=== PATIENT | female | born 1945 | race Caucasian/White ===

== ENCOUNTER 2025-06-10 11:03 | Observation (INO) | payer MEDICARE, OTHER, SELFPAY ==
[2025-06-10] VITALS (13 sets, daily range): BP systolic 148–198; BP diastolic 75–93; PULSE 77–97; RESP 14–19; TEMP 36.5–37.2; O2SAT 94–98; BMI 25.0; BMI 22.6
--- NOTE | 2025-06-10 11:28 | ED.RN ---
reports patient wouldn't respond to his questions this morning, was grunting in response. alert and oriented and appropriately responding at this time.
--- NOTE | 2025-06-10 11:33 | CT_ITS ---
EXAM: STROKE BRAIN/HEAD WITHOUT CONT CLINICAL HISTORY: 79 y/o F with NEURO DEFICIT, ACUTE, STROKE SUSPECTED. Weakness, episode of unresponsiveness. COMPARISON: None. TECHNIQUE: Routine CT imaging of the head without IV contrast. Additional multiplanar reformats were obtained. Dose reduction techniques were used including intermediate exposure control (AEC),iterative reconstruction technique, and/or mA and/or KV dose adjustments based on patient's size. FINDINGS: The ventricles, sulci and cisterns are mildly prominent, suggestive of brain parenchymal volume loss. There is no evidence of acute intracranial hemorrhage or herniation. There is no midline shift, mass effect, or extra-axial collection. Moderate patchy supratentorial white matter hypodensities. 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 The iglesias-white matter interfaces are otherwise maintained. Minimal mucosal thickening of the right maxillary sinus. The orbits, visualized paranasal sinuses and mastoids are unremarkable. No acute calvarial fracture or scalp hematoma. CT/STROKE Brain/Head without Cont IMPRESSION: 1. No acute intracranial finding. 2. Findings of chronic microvascular ischemic changes and age-related changes. Dr. Pereira discussed these findings with Dr. Starks via telephone at 12:27 p. m. on 06/10/2025. Reading Location: [id number]
--- NOTE | 2025-06-10 11:34 | CT_ITS ---
PROCEDURE: STROKE CTA HEAD AND NECK W/CON 06/10/2025 REASON FOR EXAM: NEURO DEFICIT, ACUTE, STROKE SUSPECTED TECHNIQUE: STROKE CTA HEAD AND NECK W/CON Multiplanar Sagittal and Coronal images were obtained. 3D post processing was performed. CONTRAST: Isovue 370 VOLUME: 100 mL One or more dose reduction techniques were used (e.g., Automated exposure control, adjustment of the mA and/or kV according to patient size, use of iterative reconstruction technique). RADIATION DOSE SUMMARY: DLP: 600 mGycm COMPARISON: Same-day noncontrast CT head. FINDINGS: See same day noncontrast CT head for discussion of nonvascular findings. CTA neck: Three-vessel aortic arch without focal stenosis or occlusion. The bilateral vertebral arteries are widely patent. The bilateral cervical carotid arteries are widely patent without calcification or stenosis. There is 0% narrowing by NASCET criteria bilaterally. The cervical vertebral arteries are widely patent. CTA head: Mixed plaque of the bilateral carotid siphons without focal stenosis or narrowing. The bilateral anterior, middle and posterior cerebral arteries are widely patent. origin of the bilateral posterior cerebral arteries. No aneurysm or AVM. Major venous structures: Unremarkable. Other findings: Elevation of the left hemidiaphragm with distention of the proximal descending colon, best visualized on boot and saddle repair person imaging. Cervical and thoracic spondylosis. Bilateral thyroid nodules, which do not meet criteria for dedicated follow-up. CT/STROKE CTA Head AND Neck W/Con IMPRESSION: 1. No large vessel occlusion, aneurysm or AVM. 2. See same day noncontrast CT head for chronic nonvascular findings. Reading Location: [id number]
--- NOTE | 2025-06-10 11:36 | EDS_ITS ---
HPI History of Present Illness Chief Complaint: Weakness Detail of Chief Complaint: Transient altered mental status is now completely resolved. Informant: patient and spouse/S.O. Onset/Context/Timing Onset: Today Context: Gradual Onset Timing: Intermittent Current Severity: Gone Maximum Severity: Moderate Associated Symptoms Associated Symptoms: Negative for Headache, Nausea, Vomiting or Chest Pain Narrative Narrative: 79-year-old female status post right hip replacement at the [facility] on Thursday. Was discharged yesterday. Is currently at the [facility] for rehabilitation. And plans to be discharged to home. This morning when came to visit her at the extended-care facility patient had an altered mental status. He said she was not answering questions appropriately. Now that is all totally resolved. She has not had any pain medication this morning other than Tylenol if she even had that. Currently she denies any complaints. Currently she is back to her baseline. Reportedly did a blood sugar at the time of the event and it was around the 100. Prior similar symptoms: No Recent Illness/Hospitalization: Yes [facility] Medical History Hyperlipemia Hypothyroid Surgical History History of bilateral knee replacement History of hip replacement Social History Smoking Status: Never smoker ROS ROS ED ROS Narrative Denies recent illness. Constitutional Constitutional ED: Denies chills or fever(s) Eyes Eyes: Denies blurry vision ENT ENT ED: Denies ear pain Cardiovascular Cardiovascular: Denies chest pain Respiratory/Chest Respiratory/Chest: Denies cough Gastrointestinal Gastrointestinal: Denies abdominal pain Genitourinary Genitourinary ED: Denies dysuria or hematuria Musculoskeletal Musculoskeletal: Denies arthralgias Integumentary Denies abscess Neurologic Neurologic: Denies headache(s) Psychiatric Psychiatric: Denies anxiety Endocrine Endocrinology: Denies polydipsia Hematologic/Lymphatic Hematologic/Lymphatic: Denies easy bleeding, easy bruising or lymphadenopathy Allergic/Immunologic Allergic/Immunologic ED: Denies mouth swelling or urticaria EXAM Physical Exam Narrative Exam Narrative: Well-appearing 79-year-old female. Vital signs stable afebrile. Pulse ox 96% on room air no hypoxia. She is in no distress. She is awake alert. She is joking with the staff and her . sitting at bedside. H EENT exam pupils round reactive light. No facial droop. Normal speech. No trauma to her face or head. Neck nontender no lymphadenopathy. Lungs clear to auscultation bilaterally. Heart regular rhythm no murmur. Chest wall and ribs nontender. Abdomen soft nontender. Moving all 4 extremities. Limited range of motion of the right hip due to recent surgery dressing in place clinically looks good the site. Neurologically patient is awake alert. Answer questions following commands. No slurred speech. No facial droop. 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 Normal dorsi plantarflexion. Currently her NIH is 0. Const Vital Signs: 06/10/25 11:04 06/10/25 11:08 06/10/25 11:23 Temperature 98.9 F 98.5 F Temperature Source Oral Oral Pulse Rate 82 77 Respiratory Rate 19 H 14 Respiratory Effort Normal Respiratory Pattern Normal Blood Pressure 166/88 H 175/89 H Blood Pressure Mean 114 117 Pulse Ox 96 95 Oxygen Delivery Method Room Air Room Air 06/10/25 11:33 06/10/25 12:03 06/10/25 13:00 Temperature Temperature Source Pulse Rate 82 79 82 Respiratory Rate 18 16 18 Respiratory Effort Respiratory Pattern Blood Pressure 167/89 H 159/82 H 179/80 H Blood Pressure Mean 115 107 113 Pulse Ox 95 96 96 Oxygen Delivery Method Room Air Room Air Room Air 06/10/25 14:00 Temperature Temperature Source Pulse Rate 97 Respiratory Rate 18 Respiratory Effort Respiratory Pattern Blood Pressure 181/93 H Blood Pressure Mean 122 Pulse Ox 96 Oxygen Delivery Method Room Air Positive well nourished and well developed; Negative for cachectic, contractures or unkempt General Appearance ED: well developed and NAD; Negative for unkempt, cachectic or contractures Nutritional Appearance: Negative for cachectic HEENT Reports moist mucous membranes Eyes PERRL and EOMs intact bilaterally Neck no lymphadenopathy, supple and no JVD Chest Wall inspection of chest normal and palpation of chest normal Resp normal respiratory effort and clear to auscultation bilaterally Cardio no murmurs Rate: regular rate Rhythm: regular rhythm GI normal to inspection, nondistended, normoactive bowel sounds, soft to palpation, non-distended and no masses Auscultation: normoactive bowel sounds Palpation: Negative for tender, guarding or rebound tenderness present Back/Spine no CVA tenderness General Back: Negative for CVA tenderness Cervical Spine: Negative for cervical spine tenderness Thoracic Spine / Upper Back: Negative for thoracic spinal tenderness Lumbar Spine / Lower Back: Negative for lumbar spinal tenderness Extremity normal to inspection Extremity Narrative: Status post right hip replacement. Anterior approach. Dressing in place. General Extremety ED: Negative for deformity or edema General Extremity: Negative for deformity or edema Neuro oriented x3 and CN's II-XII intact bilaterally Sensorium / Orientation: alert, oriented to person, oriented to place and oriented to time Speech: speech normal Motor Exam: strength 5/5 throughout Psych mental status grossly normal Appearance: Negative for unkempt Attitude: No agitated Mood & Affect: Negative for depressed, anxious or tearful Attention / Concentration: Negative for other Skin General Skin Exam: Negative for jaundice Lesions: no lesions Rashes: no rashes Trauma: Negative for abrasion, laceration or puncture MDM MDM MDM Narrative Medical decision making narrative: 79-year-old female. Currently normal exam. Had a transient altered mental status at the [facility] unsure the duration probably around half an hour. But now she is back to her baseline and has a benign exam. This could be secondary to a TIA. Reportedly did have blood sugars around 100. She will go through stroke protocol. Currently her NIH is 0. Repeat exam patient is doing well at 2:04 PM. Awake alert talking back to her baseline. Discussed all the test results and CAT scans with the family. This may or may not have been a TIA. She will be admitted for transient altered mental status resolved. I have already spoken to the hospitalist. Family is comfortable with the plan. History & Record Review Discussion w/independent historian: Patient and Family Additional record(s) reviewed:: No prior records Lab Data Attestation: I reviewed the patient's lab results. Lab results narrative: CBC normal. White count 8 H&H 13 and 39. Platelets 301. PT/INR 13, 1 and 23. Chemistries gap 10. Normal BUN and creatinine of 14 and 0.9. Glucose 110. Troponin 22. Urinalysis shows no red cells. 5-10 white cells 3+ bacteria no nitrites. Labs: Laboratory Results - last 24 hr 06/10/25 06/10/25 06/10/25 11:24 11:25 11:40 WBC 8.4 RBC 4.48 Hgb 13.1 Hct 39.4 MCV 87.9 MCH 29.2 MCHC 33.2 RDW Std Deviation 52.1 H RDW Coeff of Blessing 16.0 H Plt Count 301 MPV 9.6 Immature Gran % (Auto) 0.700 Neut % (Auto) 75.6 H Lymph % (Auto) 14.3 L [place] % (Auto) 7.9 Eos % (Auto) 0.9 Baso % (Auto) 0.6 Absolute Neuts (auto) 6.4 Absolute Lymphs (auto) 1.21 Nucleated RBC % 0 PT 13.0 INR 1.0 APTT 23.9 L Sodium 141 Potassium 4.1 Chloride 105 Carbon Dioxide 26.1 Anion Gap 10 BUN 14 Creatinine 0.95 Estim Creat Clear Calc 41.82 L Est GFR (MDRD) Non-Af 61 BUN/Creatinine Ratio 15.0 Glucose 110 H Calcium 10.5 Troponin T High Sens 22 H Urine Color Yellow Urine Clarity Clear Urine pH 7.0 Ur Specific [place] 1.010 Urine Protein Negative Urine Glucose (UA) Normal Urine Ketones Negative Urine Occult Blood Negative Urine Nitrite Negative Urine Bilirubin Negative Urine Urobilinogen Normal Ur Leukocyte Esterase 100 H Urine RBC 0-5 SEEN Urine WBC 5-10 SEEN Ur Squamous Epith Cells 0 SEEN Urine Bacteria 3+ Urine Mucus 0 SEEN Radiography Diagnostic Testing: Clinical Impression(s) from Imaging Studies Brain CT 06/10/25 11:33 IMPRESSION: 1. No acute intracranial finding. 2. Findings of chronic microvascular ischemic changes and age-related changes. Dr. Pereira discussed these findings with Dr. Starks via telephone at 12:27 p.m. on 06/10/2025. Reading Location: [facility] Head/Neck CTA 06/10/25 11:34 IMPRESSION: 1. No large vessel occlusion, aneurysm or AVM. 2. See same day noncontrast CT head for chronic nonvascular findings. Reading Location: [facility] Discharge Plan Triage Chief Complaint: Weakness ED Provider: Rene Starks Dx/Rx/DC Orders Clinical Impression: Altered level of consciousness, History of hip surgery Primary Care Provider: Terry Yañez Sr. Referrals: Terry Yañez Sr., DO [Primary Care Provider] - Print Language: Welsh Disposition Disposition: Acute Care Hospital [facility]
[2025-06-10 11:46] LABS: Hematocrit 39.4 % (37-47); Hemoglobin 13.1 g/dL (12.0-15.0); Immature Granulocytes Count 0.060 X10^3/uL (0.0-0.0); Mean Corp Hgb Conc 33.2 g/dL (32-36); Mean Corpuscular Volume 87.9 fL (81-99); Mean Platelet Vol. 9.6 fl (6.2-12.0); NRBC Flagged by Analyzer 0 % (0-5); Platelet Count 301 K/mm3 (150-450); RBC Distribution Width CV 16.0 % (11.6-14.6); RBC Distribution Width SD 52.1 fl (35.1-43.9); Red Blood Count 4.48 M/mm3 (4.2-5.4); White Blood Count 8.4 K/mm3 (4.4-11.0)
[2025-06-10 11:51] LABS: Mucous, Urine 0 SEEN /hpf (<or=2+); Squamous Epithelial Cells - UA 0 SEEN /hpf (5-10)
[2025-06-10 11:55] LABS: Glucose, Dipstick Normal (Normal); Ketone-Dipstick Negative (Negative); Leukocyte Esterase-Dipstick 100 /ul (Negative); Nitrite-Dipstick Negative (Negative); Occult Blood-Urine Negative /ul (Negative); Protein-Dipstick Negative (Negative); Specific Gravity, Urine 1.010 (1.002-1.030); Urine Bilirubin Dipstick Negative (Negative)
[2025-06-10 12:03] LABS: Color, Urine Yellow (Yellow)
[2025-06-10 12:05] LABS: Prothrombin Time (Protime)PT. 13.0 SECONDS (11.7-14.9)
[2025-06-10 12:06] LABS: Red Blood Cells-Urine 0-5 SEEN /hpf (0-5)
[2025-06-10 12:06] LABS: Anion Gap 10 (5-15); BUN 14 mg/dL (4-19); BUN/Creat Ratio 15.0 RATIO (10-20); Calcium,Total 10.5 mg/dL (7.6-11.0); Carbon Dioxide 26.1 mmol/L (21.0-32.0); Chloride 105 mmol/L (98-108); Estimated Creatinine Clearance 41.82 ml/min (50-250); Glucose 110 mg/dL (70-99); Potassium 4.1 mmol/L (3.3-5.1); Troponin T High Sensitivity 22 ng/L (<=14)
[2025-06-10 12:06] LABS: Partial Thromboplast Time 23.9 Seconds (24.1-36.2)
--- NOTE | 2025-06-10 12:45 | ED.RN ---
NIH and Sepsis documentation completed per Dr. Starks
--- NOTE | 2025-06-10 14:34 | HP.PCM.HOS_ITS ---
HPI - General General Date of Admission: 06/10/25 Date of Service: 06/10/25 Chief Complaint: Transient confusion HPI Narrative AARON CARLISLE, is a 79-year-old female history of right hip replacement at the [facility] Thursday and was just discharged yesterday, hypothyroidism, hyperlipidemia who presented [facility] ED 06/10/2025 for an episode of altered mental status at [facility]. This morning has been came to visit and she was not answering questions appropriately but subsequently completely resolved. Presently back to baseline. In the ED temp 98.9, heart rate 82, blood pressure 166/88, respiratory rate 19 and pulse ox 96% on room air. CBC and BMP without any evidence of endorgan damage or significant abnormalities, troponin of 22. CT of the head with chronic findings and CTA without any LVO. Hospitalist contacted for admission for CVA rule out. Patient evaluated at bedside with family members present. provides most of history, patient was doing well until around 8 or 830 when she suddenly had decreased responsiveness, would open her eyes sometimes to command and had difficulty talking when she would try to respond at all was very confused, this lasted 30 to 60 minutes and is completely back to her baseline. Patient has had some constipation since surgery but has not had a bowel movement, no changes in urination, no headache or changes in vision, absolutely no other complaints at this time patient does feel she is back to normal. She does not have any recollection of the event from earlier. Family did confirm that patient did not take any pain medication before this event today [facility] Medical History Hyperlipemia Hypothyroid Surgical History History of bilateral knee replacement History of hip replacement Social History Smoking Status: Never smoker ROS ROS Narrative General: Reports daughter told her she was hot overnight but no measured fever HENT: Denies headache, denies stuffy nose, denies sore throat EYES: Denies changes in vision Resp: Denies cough, denies shortness of breath Cardiac: Denies chest pain GI: Denies abdominal pain, has had some constipation since surgery but has had a bowel movement, denies nausea/vomiting : Denies changes in urination Extremity: Denies swelling MSK: Denies weakness outside of what would be expected from surgery Neuro: Denies any numbness/tingling Heme: Denies any bleeding or bruising outside of what would have been expected from surgery Skin: Denies rashes Psychiatric: No complaints voiced Vital Signs Vital Signs Vital Signs: 06/10/25 11:04 06/10/25 11:08 06/10/25 11:23 Temperature 98.9 F 98.5 F Temperature Source Oral Oral Pulse Rate 82 77 Respiratory Rate 19 H 14 Respiratory Effort Normal Respiratory Pattern Normal Blood Pressure 166/88 H 175/89 H Blood Pressure Mean 114 117 Pulse Ox 96 95 Oxygen Delivery Method Room Air Room Air 06/10/25 11:33 06/10/25 12:03 06/10/25 13:00 Temperature Temperature Source Pulse Rate 82 79 82 Respiratory Rate 18 16 18 Respiratory Effort Respiratory Pattern Blood Pressure 167/89 H 159/82 H 179/80 H Blood Pressure Mean 115 107 113 Pulse Ox 95 96 96 Oxygen Delivery Method Room Air Room Air Room Air 06/10/25 14:00 Temperature Temperature Source Pulse Rate 97 Respiratory Rate 18 Respiratory Effort Respiratory Pattern Blood Pressure 181/93 H Blood Pressure Mean 122 Pulse Ox 96 Oxygen Delivery Method Room Air Weight Weight: 64 kg Body Mass Index (BMI) 25.0 Physical Exam Narrative General: Alert, oriented, no apparent distress HEENT: Atraumatic, normocephalic Eyes: Anicteric, normal conjunctiva, extraocular movements intact, pupils equal Neck: Supple Respiratory: Clear to auscultation bilaterally, normal respiratory effort Cardiovascular: Regular rate and rhythm GI: Soft, nontender, nondistended Extremities: No edema Musculoskeletal: Strength 5 out of 5 in right upper extremity, 5 out of 5 left upper extremity, right lower extremity not tested due to patient being recently postop however she is able to move this, for out of 5 left lower extremity Neuro: Had a very minute decrease in nasolabial fold on right side compared to left though did not seem to have anything that would constitute an actual facial droop, otherwise cranial nerves II through XII intact, [id number] without significant difficulty bilaterally Skin: No rashes appreciated Psych: Cooperative Results Lab / Micro Data 06/10/25 11:24 06/10/25 11:24 Labs: Laboratory Results - last 24 hr 06/10/25 11:24: WBC 8.4, RBC 4.48, Hgb 13.1, Hct 39.4, MCV 87.9, MCH 29.2, MCHC 33.2, RDW Std Deviation 52.1 H, RDW Coeff of Blessing 16.0 H, Plt Count 301, MPV 9.6, Immature Gran % (Auto) 0.700, Neut % (Auto) 75.6 H, Lymph % (Auto) 14.3 L, [place] % (Auto) 7.9, Eos % (Auto) 0.9, Baso % (Auto) 0.6, Absolute Neuts (auto) 6.4, Absolute Lymphs (auto) 1.21, Nucleated RBC % 0, Sodium 141, Potassium 4.1, Chloride 105, Carbon Dioxide 26.1, Anion Gap 10, BUN 14, Creatinine 0.95, Estim Creat Clear Calc 41.82 L, Est GFR (MDRD) Non-Af 61, BUN/Creatinine Ratio 15.0, G lucose 110 H, Calcium 10.5, Troponin T High Sens 22 H 06/10/25 11:25: Urine Color Yellow, Urine Clarity Clear, Urine pH 7.0, Ur Specific [place] 1.010, Urine Protein Negative, Urine Glucose (UA) Normal, Urine Ketones Negative, Urine Occult Blood Negative, Urine Nitrite Negative, Urine Bilirubin Negative, Urine Urobilinogen Normal, Ur Leukocyte Esterase 100 H, Urine RBC 0-5 SEEN, Urine WBC 5-10 SEEN, Ur Squamous Epith Cells 0 SEEN, Urine Bacteria 3+, Urine Mucus 0 SEEN 06/10/25 11:40: PT 13.0, INR 1.0, APTT 23.9 L Imaging Radiology Impression Brain CT 06/10/25 11:33 IMPRESSION: 1. No acute intracranial finding. 2. Findings of chronic microvascular ischemic changes and age-related changes. Dr. Pereira discussed these findings with Dr. Starks via telephone at 12:27 p.m. on 06/10/2025. Reading Location: [id number] Head/Neck CTA 06/10/25 11:34 IMPRESSION: 1. No large vessel occlusion, aneurysm or AVM. 2. See same day noncontrast CT head for chronic nonvascular findings. Reading Location: [facility] Assessment & Plan Assessment/Plan (1) Transient confusion: PLAN: Plan # Transient confusion -Admit to tele -CT head w/ chronic changes in ED -CTA head and neck no LVO -MRI ordered -NIH q4hr -asa, statin -Echo -PT/OT/Speech eval -Teleneuro consult ordered -Hold BP medications to allow for permissive hypertension for 24 hours unless SBP greater than 220 or DBP greater than 120 or until stroke is ruled out # Hypertensive urgency versus emergency - Patient's systolic blood pressure at time of my exam 195, unclear if she may have had hypertensive emergency causing her mental status changes as above though suspect less likely - Will manage based on blood pressure parameters as above due to concern that this was TIA #Mild trop elevation -of 22, may be d/t elevated BP -Pt w/ no chest pain or other complaints that be concerning for ACS at this time #Hypothyroidism -Continue Synthroid # Recent right hip replacement - At [facility] this past Thursday #DVT ppx: SCDs Blessing Brantley MD Charges/Coding Visit Charges Inpatient E&M: 06501 Init Hosp L2
--- NOTE | 2025-06-10 14:40 | CASEMGMT ---
Social Work Date of referral: 06/10/25 Reason for referral: No Advanced Care Directives (ACD's) on file Referred by: Social Work identification Patient provided consent for social work visit. Patient's , daughter Luisa and patient's grandson were present. Weather Algorithm Scientist requested a copy of patient's ACD's which patient's stated he would provide. Weather Algorithm Scientist provided education about how to complete through [facility] if unable to locate and interested which everyone verbalized they understood. No other services requested at this time. Fidelina Og, TABLET REPAIR, DERMATOLOGY SALES REPRESENTATIVE
[2025-06-10] MEDS: 0.9% Normal Saline (1000mL) 1,000 ML 50 ML IV (16:57)
[2025-06-10] MEDS: 0.9% Saline Lock 10 ML Syringe IV (17:02)
[2025-06-10] MEDS: MELATONIN 10 MG TABLET PO (19:48)
[2025-06-11 02:00] VITALS: BP 146/74; PULSE 91; RESP 17; TEMP 36.7; O2SAT 95
[2025-06-11 03:32] LABS: Xtra Tube EP Lab EXTRA TUBE
[2025-06-11 05:43] LABS: Hematocrit 38.2 % (37-47); Hemoglobin 12.6 g/dL (12.0-15.0); Immature Granulocytes Count 0.050 X10^3/uL (0.0-0.0); Mean Corp Hgb Conc 33.0 g/dL (32-36); Mean Corpuscular Volume 88.2 fL (81-99); Mean Platelet Vol. 10.2 fl (6.2-12.0); NRBC Flagged by Analyzer 0 % (0-5); Platelet Count 298 K/mm3 (150-450); RBC Distribution Width CV 16.0 % (11.6-14.6); RBC Distribution Width SD 52.2 fl (35.1-43.9); Red Blood Count 4.33 M/mm3 (4.2-5.4); White Blood Count 5.6 K/mm3 (4.4-11.0)
[2025-06-11 06:04] LABS: Prothrombin Time (Protime)PT. 13.3 SECONDS (11.7-14.9)
[2025-06-11 06:34] LABS: Cholesterol 125 mg/dL (<=200); Low Density Lipoprotein Calc. 53 mg/dL; Triglycerides 101 mg/dL; Very Low Density Lipoprotein 20 mg/dL (5-40); cholesterol:hdl ratio screen 2.42
[2025-06-11 06:39] LABS: Anion Gap 12 (5-15); BUN 13 mg/dL (4-19); BUN/Creat Ratio 14.7 RATIO (10-20); Calcium,Total 10.2 mg/dL (7.6-11.0); Carbon Dioxide 20.4 mmol/L (21.0-32.0); Chloride 104 mmol/L (98-108); Estimated Creatinine Clearance 42.94 ml/min (50-250); Glucose 101 mg/dL (70-99); Potassium 3.8 mmol/L (3.3-5.1)
[2025-06-11 07:15] VITALS: BP 127/85; PULSE 92; RESP 16; TEMP 36.5; O2SAT 95
--- NOTE | 2025-06-11 07:54 | PN.HOSP_ITS ---
Reason for Visit Chief Complaint: Transient confusion Objective Data Objective Data Vital Signs: Vital Signs Temp Pulse Resp BP Pulse Ox O2 Del Method 98.0 F 91 17 146/74 H 95 Room Air 06/11/25 02:00 06/11/25 02:00 06/11/25 02:00 06/11/25 02:00 06/11/25 02:00 06/11/25 02:00 Oxygen Delivery Method Room Air Weight: 128 lb 1.417 oz Body Mass Index (BMI) 22.6 Intake & Output: Intake and Output for Last 24 Hours 06/09/25 06/10/25 06/11/25 23:59 23:59 23:59 Intake Total 0 / 0 Balance 0 / 0 Lab / Micro Data 06/11/25 04:46 06/11/25 04:46 Labs: Laboratory Results - last 24 hr 06/10/25 11:24: WBC 8.4, RBC 4.48, Hgb 13.1, Hct 39.4, MCV 87.9, MCH 29.2, MCHC 33.2, RDW Std Deviation 52.1 H, RDW Coeff of Blessing 16.0 H, Plt Count 301, MPV 9.6, Immature Gran % (Auto) 0.700, Neut % (Auto) 75.6 H, Lymph % (Auto) 14.3 L, Refugio % (Auto) 7.9, Eos % (Auto) 0.9, Baso % (Auto) 0.6, Absolute Neuts (auto) 6.4, Absolute Lymphs (auto) 1.21, Nucleated RBC % 0, Sodium 141, Potassium 4.1, Chloride 105, Carbon Dioxide 26.1, Anion Gap 10, BUN 14, Creatinine 0.95, Estim Creat Clear Calc 41.82 L, Est GFR (MDRD) Non-Af 61, BUN/Creatinine Ratio 15.0, G lucose 110 H, Calcium 10.5, Troponin T High Sens 22 H 06/10/25 11:25: Urine Color Yellow, Urine Clarity Clear, Urine pH 7.0, Ur Specific Lawrence 1.010, Urine Protein Negative, Urine Glucose (UA) Normal, Urine Ketones Negative, Urine Occult Blood Negative, Urine Nitrite Negative, Urine Bilirubin Negative, Urine Urobilinogen Normal, Ur Leukocyte Esterase 100 H, Urine RBC 0-5 SEEN, Urine WBC 5-10 SEEN, Ur Squamous Epith Cells 0 SEEN, Urine Bacteria 3+, Urine Mucus 0 SEEN 06/10/25 11:40: PT 13.0, INR 1.0, APTT 23.9 L 06/11/25 04:46: WBC 5.6, RBC 4.33, Hgb 12.6, Hct 38.2, MCV 88.2, MCH 29.1, MCHC 33.0, RDW Std Deviation 52.2 H, RDW Coeff of Blessing 16.0 H, Plt Count 298, MPV 10.2, Immature Gran % (Auto) 0.900, Neut % (Auto) 67.4, Lymph % (Auto) 18.7 L, M clara % (Auto) 10.3 H, Eos % (Auto) 1.8, Baso % (Auto) 0.9, Absolute Neuts (auto) 3.8, Absolute Lymphs (auto) 1.05, Nucleated RBC % 0, PT 13.3, INR 1.0, Sodium 137, Potassium 3.8, Chloride 104, Carbon Dioxide 20.4 L, Anion Gap 12, BUN 13, Creatinine 0.85, Estim Creat Clear Calc 42.94 L, Est GFR (MDRD) Non-Af 69, BUN/Creatinine Ratio 14.7, Glucose 101 H, Hemoglobin A1c 5.6, Calcium 10.2, Triglycerides 101, Cholesterol 125, LDL Cholesterol, Calc 53, VLDL Cholesterol 20, HDL Cholesterol 52, Cholesterol/HDL Ratio 2.42, TSH 5.250 H Radiography Diagnostic Testing: Radiology Impression Brain CT 06/10/25 11:33 IMPRESSION: 1. No acute intracranial finding. 2. Findings of chronic microvascular ischemic changes and age-related changes. Dr. Pereira discussed these findings with Dr. Starks via telephone at 12:27 p.m. on 06/10/2025. Reading Location: [id number] Head/Neck CTA 06/10/25 11:34 IMPRESSION: 1. No large vessel occlusion, aneurysm or AVM. 2. See same day noncontrast CT head for chronic nonvascular findings. Reading Location: [facility] Physical Exam Narrative General: Alert, oriented, no apparent distress HEENT: Atraumatic, normocephalic Eyes: Anicteric, normal conjunctiva, extraocular movements intact, pupils equal Neck: Supple Respiratory: Clear to auscultation bilaterally, normal respiratory effort Cardiovascular: Regular rate and rhythm GI: Soft, nontender, nondistended Extremities: No edema Musculoskeletal: Strength 5 out of 5 in right upper extremity, 5 out of 5 left upper extremity, right lower extremity not tested due to patient being recently postop however she is able to move this, for out of 5 left lower extremity Neuro: Had a very minute decrease in nasolabial fold on right side compared to left though did not seem to have anything that would constitute an actual facial droop, otherwise cranial nerves II through XII intact, [id number] without significant difficulty bilaterally Skin: No rashes appreciated Psych: Cooperative Assessment & Plan Assessment/Plan (1) Transient confusion: PLAN: Plan 79-year-old female was admitted for unresponsive episode with increased weakness/AMS at [facility]. Patient found to be normal on EMS arrival. Had a recent hip replacement increased to clinic by Dr. Resendiz # Transient confusion -Admit to tele -CT head w/ chronic changes in ED -CTA head and neck no LVO -MRI ordered -NIH q4hr -asa, statin -Echo -PT/OT/Speech eval -Teleneuro consult ordered -Hold BP medications to allow for permissive hypertension for 24 hours unless SBP greater than 220 or DBP greater than 120 or until stroke is ruled out # Hypertensive urgency versus emergency - Patient's systolic blood pressure at time of my exam 195, unclear if she may have had hypertensive emergency causing her mental status changes as above though suspect less likely - Will manage based on blood pressure parameters as above due to concern that this was TIA #Mild trop elevation -of 22, may be d/t elevated BP -Pt w/ no chest pain or other complaints that be concerning for ACS at this time #Hypothyroidism -Continue Synthroid # Recent right hip replacement - At [facility] this past Thursday #DVT ppx: SCDgisell Brantley MD NIHSS NIHSS Nursing Documentation NIHSS Nursing Documentation: NIHSS: Ischemic Stroke/TIA Start: 06/10/25 15:44 Text: For PCU Patients: NIH and Neuro Check every 4 Status: Active hours, PRN and with change in RN caregiver. Freq: [id number] Protocol: Activity Type Activity Date Activity User E-sign Co-sign Detail Recorded Client Recorded Date Recorded By Document 06/11/25 02:00 ALEXANDR [id number] 06/11/25 04:38 ALEXANDR 06/11/25 02:00 NIH Stroke Scale [NIHSS] A score of 0 is normal or asymptomatic . Total possible score is 42. Inpatient: RN or Physician to activate a stroke alert for onset of new stroke symptoms or with NIHSS increase >/= 3 points. Following change in neurological status, NIHSS will be performed per physician order or more frequently PRN. -1a. Level of Consciousness 0 - Alert; keenly responsive -1b. LOC Questions 1 - Answers ONE question correctly -1c. LOC Commands 0 - Performs BOTH tasks correctly -2. Best Gaze 0 - Normal -3. Visual 0 - No visual loss -4. Facial Palsy 0 - Normal symmetrical movements -5a. Left Arm 0 - No drift; arm holds 90 ( or 45) degrees for full 10 seconds -5b. Right Arm 0 - No drift; arm holds 90 ( or 45) degrees for full 10 seconds -6a. Left Leg 0 - No drift; leg holds 30- degree position for full 5 seconds -6b. Right Leg 0 - No drift; leg holds 30- degree position for full 5 seconds -'UN' explanation unable to do r leg d/t hip surgery -7. Limb Ataxia UN - Amputation or joint fusion, explain -'UN' explanation unable to do with R leg d/t hip surgery -8. Sensory 0 - Normal; no sensory loss -9. Best Language 0 - No aphasia; normal -10. Dysarthria 0 - Normal -11. Extinction and Inattention 0 - No abnormality -Total 1 Query Text:A score of 0 is normal or asymptomatic. Total possible score is 42 . ED: Notify Physician for NIHSS increase by > / = 3 points. Inpatient: RN or Physician to activate a stroke alert for NIHSS increase of > / = 3 points. Coma Scale [Assess] -Eye Opening Spontaneous -Motor Obeys Commands -Verbal Oriented [Total] -Coma Scale Total 15
--- NOTE | 2025-06-11 08:11 | NURSING ---
[address] [facility] completed with staceyyennifer Lara at bedside. No change noted.
[2025-06-11] MEDS: Lactobacillis Acidophilus 1 CAP PO (08:52)
[2025-06-11] MEDS: Aspirin E.C. 81 MG Tablet PO (08:53)
[2025-06-11] MEDS: Calcium Carb/Vitamin D 1 TABLET Tablet 2 TABLET PO (08:53)
[2025-06-11] MEDS: Senna/Docusate Sodium 1 Tablet 2 TABLET PO (08:53)
[2025-06-11 09:54] VITALS: BP 119/92
--- NOTE | 2025-06-11 10:23 | PCM.TXEXTCAR ---
Diet Diet Order/Speech Therapy: INPATIENT Hospital Diet / Speech Therapy Order(s) 06/11/25 08:43 Diet: Regular - General Food consistency:: Regular Liquid Consistency:: Regular/Thin Speech Therapy Comments: No straws Routine Orders/Code Status Suppository Type: Dulcolax 10mg Suppository Frequency: Daily PRN DC O2, CPAP, BIPAP needs Home O2 Discharge instructions: No Wound(s) R hip: Wound Type: Surgical Incision Therapies Extremity Affected:: Bilateral Lower Physical Therapy: Eval and Treat Occupational Therapy: Eval and Treat Speech Therapy: Eval and Treat Problem/Diagnosis (1) Transient confusion: Status: Acute Code(s): R41.0 - Disorientation, unspecified Plan 79-year-old female was admitted for unresponsive episode with increased weakness/AMS at [facility]. Patient found to be normal on EMS arrival. Had a recent hip replacement increased to clinic by Dr. Resendiz # Transient confusion: Patient admitted to telemetry. MRI brain negative # Hypertensive urgency versus emergency - Patient's systolic blood pressure at time of my exam 195, unclear if she may have had hypertensive emergency causing her mental status changes as above though suspect less likely - Will manage based on blood pressure parameters as above due to concern that this was TIA #Mild trop elevation -of 22, may be d/t elevated BP -Pt w/ no chest pain or other complaints that be concerning for ACS at this time #Hypothyroidism -Continue Synthroid # Recent right hip replacement - At [facility] this past Thursday #DVT ppx: SCDs Allergies/Procedures Done in Hospital Allergies shellfish derived Allergy (Severe, Verified 06/10/25 15:43) Anaphylaxis Sulfa (Sulfonamide Antibiotics) Allergy (Severe, Verified 06/10/25 15:43) Hives hives on chest moxifloxacin (From Avelox) Allergy (Verified 06/10/25 15:43) uknown Penicillins Allergy (Verified 06/10/25 15:43) unknown when younger unsure of reaction Type of Care/Length of Stay Estimated LOS: Convalescent Care Less Than 30 days Type of Care Needed: Skilled Rehab Potential: Good Prognosis: Good Additional Orders/Day of Discharge Day of Discharge: 06/11/25 Dietary and Speech Recommendations Dietitian Recommendations/Changes: Cardiac/heart healthy as indicated given history of HLD. ONS if PO established suboptimal at meals. Discharge Plan Admission Admit Date/Time: 06/10/25 14:34 Primary Reason for Your Visit: Encephalopathy. Attending Provider: Broderikc Prakash Primary Care Provider: Terry Yañez Sr. Consulting Providers: Hira Chavez; Anthony Ramos; Margot Crawford; Nory Ramos; Abigail Barksdale; David Quinn; Odessa Germain; Daniel Carroll; Homar Shirley; Salazar Vasquez; Kimberly Martin; Gary De Paz; Emily Rhoades; Dory Ordonez; Jesse Lawrence; Gordo Licea; Yumi Maddox; Leon Linda; Whit Antonio; Goran Potts; Blessing Brantley Discharge Orders/Prescriptions Prescriptions: Continued amitriptyline 10 mg tablet 10 mg PO PRN aspirin 81 mg tablet,delayed release (DR/EC) 81 mg PO BID atorvastatin [Lipitor] 20 mg tablet 20 mg PO DAILY bisacodyl 10 mg suppository 10 mg KS DAILY PRN (Reason: constipation) calcium carb, citrate-vit D3 [Citracal-D3 Slow Release] 600 mg-12.5 mcg (500 unit) tablet extended release 2 tab PO DAILY tramadol 50 mg tablet 50 mg PO Q8H PRN (Reason: pain) levothyroxine 50 mcg tablet 50 mcg PO DAILY montelukast 10 mg tablet 10 mg PO QPM cholecalciferol (vitamin D3) 50 mcg (2,000 unit) capsule 50 mcg PO DAILY acetaminophen 500 mg tablet 1,000 mg PO Q6H PRN (Reason: pain) Probiotic 10 billion cell capsule 10,000 mmu cells PO DAILY sennosides-docusate sodium 8.6-50 mg tablet 1 tab-cap PO DAILY PRN (Reason: constipation) magnesium hydroxide [Milk of Magnesia] 400 mg/5 mL suspension 30 ml PO DAILY PRN (Reason: constipation) Referrals / Follow Up: Otilio Dozier,Terry, [Primary Care Provider] - Igelsia Gaitan MD [Non-Staff -Ordering Privileges] - Within 1 Month (Encephalopathy) Disposition Disposition (needs filled in before D/C Order can be placed): [facility]
[2025-06-11 11:15] VITALS: BP 131/79; PULSE 85; RESP 16; TEMP 36.4; O2SAT 95
[2025-06-11 11:33] VITALS: BMI 22.6
--- NOTE | 2025-06-11 12:26 | NURSING ---
This RN spoke with TANIA Macias, who called [facility], and confirmed that pt can return without precert or needs. Pt nurse is requesting that she be updated on transportation time. Jignesh CEJA
--- NOTE | 2025-06-11 12:26 | NEURO.CONS ---
Assessment and Plan: Neuro Assessment/Plan AARON CARLISLE is a 79 F with a past medical history of hip replacement, hypothyroidism, being evaluated by Teleneurology for transient confusion and poor attention in setting of recent hip surgery and having just been transferred to a new facility. These symptoms are occuring in setting of constipation and poor sleep and urine is not clearly benign (although not clearly infectious either). Exam currently returned to baseline. Based on description of the event per the family, seems more likely poor responsiveness was from poor attention. No clear focal symptoms during the event and patient is stable to improving. At this time, history consistent with delirium rather than seizure or TIA. Plan: - recommend aggressive bowel regiment - sleep hygiene per primary team I personally attended this patient and spent a total time of 45minutes evaluating this patient including clinical assessment, review of chart, medical history imaging, and determining appropriate treatment and workup. HPI Consult Data Date of Consult: 06/12/25 HPI Narrative HPI Narrative: AARON CARLISLE, is a 79-year-old female history of right hip replacement at the [facility] Thursday and was just discharged yesterday, hypothyroidism, hyperlipidemia who presented [facility] ED 06/10/2025 for an episode of altered mental status at [facility]. This morning has been came to visit and she was not answering questions appropriately but subsequently completely resolved. Presently back to baseline. In the ED temp 98.9, heart rate 82, blood pressure 166/88, respiratory rate 19 and pulse ox 96% on room air. CBC and BMP without any evidence of endorgan damage or significant abnormalities, troponin of 22. CT of the head with chronic findings and CTA without any LVO. Hospitalist contacted for admission for CVA rule out. Patient evaluated at bedside with family members present. provides most of history, patient was doing well until around 8 or 830 when she suddenly had decreased responsiveness, would open her eyes sometimes to command and had difficulty talking when she would try to respond at all was very confused, this lasted 30 to 60 minutes and is completely back to her baseline. Patient has had some constipation since surgery but has not had a bowel movement, no changes in urination, no headache or changes in vision, absolutely no other complaints at this time patient does feel she is back to normal. She does not have any recollection of the event from earlier. Family did confirm that patient did not take any pain medication before this event today Neurologic History Since getting the hip surgery, she has been confused especially at night. She did not sleep last night. Patient was confused and not responding and she could not talk at all. She seemed like she was eyes open and just not having food attention. No facial drooping noted. Nothing like this happened in the past. When EMS arrived she was talking already and back to normal and was brought for evaluation. Last bowel movement was Wed after a suppository. Just on tylenol at the facility. Thursday morning at 11:30 AM was her last pain med (tramadol).Denies halluconations. The agitation was because patient wanted to go home and get very anxious. She is not sure when she last slept well. Neurologic Exam -? General: Laying comfortably in bed; in no acute distress. -? HENT: Normal oropharynx and mucosa. Normal external appearance of ears and nose. Exophthalmos. -? Neck: Supple, no pain or tenderness -? CV:? No peripheral edema. -? Pulmonary:? Normal respiratory effort. -? Ext: No cyanosis, edema, or deformity -? Skin: No rash. Normal palpation of skin.? -? Musculoskeletal: full range of motion; no joint tenderness. Normal digits and nails by inspection. No clubbing. -? NEURO: -? Mental Status: The patient was alert and oriented to time, place, and person. Normal recent/remote memory, concentration, and general fund of knowledge. -? Language: speech is clear.? Naming, repetition, fluency, and comprehension intact. -? Cranial Nerves: PERRL 3 mm/brisk. EOMI, visual lopez full, no facial asymmetry, facial sensation intact, hearing intact, tongue midline, no evidence of atrophy or fibrillations. -? Motor: normal bulk, tone, and strength throughout. No pronator drift or satelliting. Upper and lower extremities equal bilaterally. Has difficulty lifting the R leg as that is the side of her hip surgery.But no drift once she lifts it. -? Detailed strength exam as performed by the nurse/FABY and witnessed by the physician: R L SA 5 5 EE EF 5 5 WE [employer] Coordinator HF KE KF 5 5 DF 5 5 PF 5 5 -? Tone: is normal and bulk is normal -? Sensation- Intact to light touch bilaterally -? Coordination: No dysmetria on [id number], finger follow finger or [id number]. -? Gait- deferred [facility] Medical History Hyperlipemia Hypothyroid Home Medications ?Medication ?Instructions ?Recorded ?Last Taken ?Type Lactobacillus acidophilus 10 10,000 mmu cells PO DAILY 06/10/25 Unknown History billion cell capsule (Probiotic) acetaminophen 500 mg tablet 1,000 mg PO Q6H PRN pain 06/10/25 Unknown History amitriptyline 10 mg tablet 10 mg PO PRN loose stools 06/10/25 Unknown History aspirin 81 mg tablet,delayed 81 mg PO BID 06/10/25 Unknown History release atorvastatin 20 mg tablet (Lipitor) 20 mg PO DAILY 06/10/25 Unknown History bisacodyl 10 mg rectal suppository 10 mg DE DAILY PRN constipation 06/10/25 Unknown History calcium ER 600 mg (as carb,cit)-D3 2 tab PO DAILY supplement 06/10/25 Unknown History 12.5 mcg (500 unit) tablet, ext.rel (Citracal-D3 Slow Release) cholecalciferol (vitamin D3) 50 50 mcg PO DAILY 06/10/25 Unknown History mcg (2,000 unit) capsule montelukast 10 mg tablet 10 mg PO QPM 06/10/25 Unknown History tramadol 50 mg tablet 50 mg PO Q8H PRN pain 06/10/25 Unknown History levothyroxine 75 mcg tablet 75 mcg PO DAILY 1 month #30 tabs 06/11/25 Unknown Rx (Levoxyl) magnesium hydroxide 400 mg/5 mL 30 ml PO DAILY PRN constipation 06/11/25 Unknown History oral suspension (Milk of Magnesia) sennosides 8.6 mg-docusate sodium 1 tab-cap PO DAILY PRN constipation 06/11/25 Unknown History 50 mg tablet Allergy/AdvReac Type Severity Reaction Status Date / Time shellfish derived Allergy Severe Anaphylaxis Verified 06/10/25 15:43 Sulfa (Sulfonamide Allergy Severe Hives Verified 06/10/25 15:43 Antibiotics) moxifloxacin (From Avelox) Allergy uknown Verified 06/10/25 15:43 Penicillins Allergy unknown Verified 06/10/25 15:43 Family History no significant family his Surgical History H/O spinal fusion History of bilateral knee replacement History of hip replacement Social History Smoking Status: Never smoker Vital Signs Vital Signs Vital Signs: 06/10/25 13:00 06/10/25 14:00 06/10/25 15:00 Temperature Temperature Source Pulse Rate 82 97 92 Pulse Strength Respiratory Rate 18 18 16 Respiratory Effort Respiratory Depth Respiratory Pattern Blood Pressure 179/80 H 181/93 H 198/88 H Blood Pressure Mean 113 122 124 Blood Pressure Source Blood Pressure Position Blood Pressure Location Pulse Ox 96 96 96 Oxygen Delivery Method Room Air Room Air Room Air 06/10/25 15:21 06/10/25 15:47 06/10/25 16:19 Temperature 98.5 F 97.7 F L Temperature Source Temporal Pulse Rate 92 96 Pulse Strength Respiratory Rate 16 16 Respiratory Effort Respiratory Depth Respiratory Pattern Blood Pressure 198/88 H 148/92 H Blood Pressure Mean 124 110 Blood Pressure Source Monitor Blood Pressure Position Semi-Fowlers Blood Pressure Location Left Arm Pulse Ox 96 98 96 Oxygen Delivery Method Room Air Room Air 06/10/25 16:30 06/10/25 19:37 06/10/25 19:38 Temperature 98.5 F Temperature Source Oral Pulse Rate 95 Pulse Strength Respiratory Rate 16 Respiratory Effort Normal Non-Labored Respiratory Depth Normal Respiratory Pattern Normal Blood Pressure 151/85 H Blood Pressure Mean 107 Blood Pressure Source Monitor Blood Pressure Position Semi-Fowlers Blood Pressure Location Left Arm Pulse Ox 94 97 Oxygen Delivery Method Room Air Room Air Room Air 06/10/25 22:00 06/10/25 22:00 06/10/25 22:00 Temperature 98.5 F Temperature Source Oral Pulse Rate 95 Pulse Strength Normal (2+) Respiratory Rate 16 Respiratory Effort Normal Non-Labored Respiratory Depth Normal Respiratory Pattern Normal Blood Pressure 151/75 H Blood Pressure Mean 100 Blood Pressure Source Monitor Blood Pressure Position Supine Blood Pressure Location Left Arm Pulse Ox 95 Oxygen Delivery Method Room Air Room Air 06/11/25 02:00 06/11/25 07:15 06/11/25 08:11 Temperature 98.0 F 97.7 F L Temperature Source Oral Temporal Pulse Rate 91 92 Pulse Strength Normal (2+) Respiratory Rate 17 16 Respiratory Effort Respiratory Depth Respiratory Pattern Blood Pressure 146/74 H 127/85 H Blood Pressure Mean 98 99 Blood Pressure Source Monitor Monitor Blood Pressure Position Supine Semi-Fowlers Blood Pressure Location Left Arm Left Arm Pulse Ox 95 95 Oxygen Delivery Method Room Air Room Air 06/11/25 08:30 06/11/25 09:54 06/11/25 11:15 Temperature 97.5 F L Temperature Source Temporal Pulse Rate 85 Pulse Strength Respiratory Rate 16 Respiratory Effort Normal Non-Labored Respiratory Depth Normal Respiratory Pattern Normal Blood Pressure 119/92 H 131/79 H Blood Pressure Mean 101 96 Blood Pressure Source Monitor Monitor Blood Pressure Position Sitting Semi-Fowlers Blood Pressure Location Left Arm Left Arm Pulse Ox 95 Oxygen Delivery Method Room Air Room Air Weight Weight: 58.1 kg Body Mass Index (BMI) 22.6 EEG Results Procedure Details EEG Procedure Details: AARON CARLISLE is a 79 year old F with a past medical history of , who presents for evaluation of Electroencephalogram on DATE at TIME Lab / Micro Data 06/11/25 04:46 06/11/25 04:46 Labs: Laboratory Results - last 24 hr 06/11/25 04:46: WBC 5.6, RBC 4.33, Hgb 12.6, Hct 38.2, MCV 88.2, MCH 29.1, MCHC 33.0, RDW Std Deviation 52.2 H, RDW Coeff of Blessing 16.0 H, Plt Count 298, MPV 10.2, Immature Gran % (Auto) 0.900, Neut % (Auto) 67.4, Lymph % (Auto) 18.7 L, [place] % (Auto) 10.3 H, Eos % (Auto) 1.8, Baso % (Auto) 0.9, Absolute Neuts (auto) 3.8, Absolute Lymphs (auto) 1.05, Nucleated RBC % 0, PT 13.3, INR 1.0, Sodium 137, Potassium 3.8, Chloride 104, Carbon Dioxide 20.4 L, Anion Gap 12, BUN 13, Creatinine 0.85, Estim Creat Clear Calc 42.94 L, Est GFR (MDRD) Non-Af 69, BUN/Creatinine Ratio 14.7, Glucose 101 H, Hemoglobin A1c 5.6, Calcium 10.2, Triglycerides 101, Cholesterol 125, LDL Cholesterol, Calc 53, VLDL Cholesterol 20, HDL Cholesterol 52, Cholesterol/HDL Ratio 2.42, TSH 5.250 H Imaging Radiology Impression Brain CT 06/10/25 11:33 IMPRESSION: 1. No acute intracranial finding. 2. Findings of chronic microvascular ischemic changes and age-related changes. Dr. Pereira discussed these findings with Dr. Starks via telephone at 12:27 p.m. on 06/10/2025. Reading Location: [facility] Head/Neck CTA 06/10/25 11:34 IMPRESSION: 1. No large vessel occlusion, aneurysm or AVM. 2. See same day noncontrast CT head for chronic nonvascular findings. Reading Location: [facility] Brain MRI 06/11/25 15:44 IMPRESSION: 1. No acute finding. 2. Chronic findings as described. Reading Location: [facility] Active Medications Active Medications Active Medications: Current Medications Generic Name Dose Route Start Last Admin Trade Name Freq PRN Reason Stop Dose Admin Acetaminophen 650 mg 06/10/25 15:44 06/11/25 08:53 Acetaminophen 325 Mg Tablet PO 650 mg Q6H PRN PRN Administration Pain 1-10 Or Fever >100.7 Albuterol Sulfate 2.5 mg 06/10/25 15:44 Albuterol 2.5 Mg/3 Ml Vial.Neb. INHALATION Q2H PRN PRN SOB &/OR WHEEZING Aspirin 81 mg 06/10/25 22:00 06/11/25 08:53 Aspirin E.C. 81 Mg Tablet PO 81 mg BID SAMUEL Administration Atorvastatin Calcium 40 mg 06/10/25 22:00 06/10/25 19:50 Atorvastatin Calcium 40 Mg Tablet PO 40 mg QHS SAMUEL Administration Calcium/Vitamin D 2 tablet 06/11/25 10:00 06/11/25 08:53 Calcium Carb/Vitamin D 1 Tablet Tablet PO 2 tablet DAILY SAMUEL Administration Hydralazine HCl 5 mg 06/10/25 15:44 Hydralazine 20 Mg/Ml Vial IV 06/11/25 15:44 Q30M PRN maintain BP parameters with HR <60 Sodium Chloride 250 mls @ 15 mls/hr 06/10/25 15:46 IV .[id number] PRN Saline Flush Sodium Chloride 250 mls @ 15 mls/hr 06/10/25 15:46 IV .[id number] PRN Additional IVPB Infusion Labetalol HCl 10 - 20 mg 06/10/25 15:44 Labetalol 20 Mg/4 Ml Vial IV 06/11/25 15:44 Q10M PRN PRN maintain BP parameters with HR >/=60 Levothyroxine Sodium 50 mcg 06/11/25 06:00 06/11/25 05:58 Levothyroxine 50 Mcg Tablet PO 50 mcg DAILY@0600 SAMUEL Administration Melatonin 10 mg 06/10/25 15:44 06/10/25 19:48 Melatonin 10 Mg Tablet PO 10 mg QHS PRN PRN Administration INSOMNIA Montelukast Sodium 10 mg 06/10/25 21:00 06/10/25 19:50 Montelukast 10 Mg Tablet PO 10 mg QPM SAMUEL Administration Ondansetron HCl 4 mg 06/10/25 15:44 Ondansetron 4 Mg/2 Ml Vial IV Q8H PRN PRN NAUSEA/VOMITING Oxycodone HCl 2.5 mg 06/10/25 15:44 06/11/25 08:54 Oxycodone 5 Mg Tablet PO 2.5 mg Q4H PRN PRN Administration Pain Score 4-10 Risperidone 0.25 mg 06/10/25 19:05 06/10/25 22:11 Risperidone 0.25 Mg Tablet PO 0.25 mg QHS SAMUEL Administration Protocol Senna/Docusate Sodium 2 tablet 06/10/25 22:00 06/11/25 08:53 Senna/Docusate Sodium 1 Tablet PO 2 tablet BID SAMUEL Administration Sodium Chloride 10 - 40 ml 06/10/25 15:46 06/10/25 17:02 0.9% Saline Lock 10 Ml Syringe IV 10 ml UD PRN Administration SALINE FLUSH NIHSS NIHSS Nursing Documentation NIHSS Nursing Documentation: NIHSS: Ischemic Stroke/TIA Start: 06/10/25 15:44 Text: For PCU Patients: NIH and Neuro Check every 4 Status: Active hours, PRN and with change in RN caregiver. Freq: [id number] Protocol: Activity Type Activity Date Activity User E-sign Co-sign Detail Recorded Client Recorded Date Recorded By Document 06/11/25 11:15 HP desktop 06/11/25 11:26 HP 06/11/25 11:15 NIH Stroke Scale [NIHSS] A score of 0 is normal or asymptomatic . Total possible score is 42. Inpatient: RN or Physician to activate a stroke alert for onset of new stroke symptoms or with NIHSS increase >/= 3 points. Following change in neurological status, NIHSS will be performed per physician order or more frequently PRN. -1a. Level of Consciousness 0 - Alert; keenly responsive -1b. LOC Questions 0 - Answers BOTH questions correctly -1c. LOC Commands 0 - Performs BOTH tasks correctly -2. Best Gaze 0 - Normal -3. Visual 0 - No visual loss -4. Facial Palsy 0 - Normal symmetrical movements -5a. Left Arm 0 - No drift; arm holds 90 ( or 45) degrees for full 10 seconds -5b. Right Arm 0 - No drift; arm holds 90 ( or 45) degrees for full 10 seconds -6a. Left Leg 0 - No drift; leg holds 30- degree position for full 5 seconds -6b. Right Leg UN - Amputation or joint fusion, explain : -'UN' explanation unable to do r leg d/t hip surgery -7. Limb Ataxia UN - Amputation or joint fusion, explain -'UN' explanation unable to do with R leg d/t hip surgery -8. Sensory 0 - Normal; no sensory loss -9. Best Language 0 - No aphasia; normal -10. Dysarthria 0 - Normal -11. Extinction and Inattention 0 - No abnormality -Total 0 Query Text:A score of 0 is normal or asymptomatic. Total possible score is 42 . ED: Notify Physician for NIHSS increase by > / = 3 points. Inpatient: RN or Physician to activate a stroke alert for NIHSS increase of > / = 3 points. Coma Scale [Assess] -Eye Opening Spontaneous -Motor Obeys Commands -Verbal Oriented [Total] -Coma Scale Total 15
[2025-06-11 13:12] VITALS: BMI 22.6
--- NOTE | 2025-06-11 15:32 | NURSING ---
Report called to Ki at [facility]
--- NOTE | 2025-06-11 15:44 | MRI_ITS ---
PROCEDURE: BRAIN WITHOUT CONTRAST 06/11/2025 REASON FOR EXAM: TIA R/O TECHNIQUE: BRAIN WITHOUT CONTRAST Multiplanar and multisequence images were obtained. COMPARISON: Noncontrast CT head, CTA head and neck 06/10/2025. FINDINGS: Brain: Mild cerebral atrophy and moderate chronic periventricular white matter disease. No area of mismatched hyperintensity on diffusion-weighted imaging to suggest acute infarct. No abnormal hemosiderin deposit on GRE imaging. Ventricles: Consistent with the overall degree of cerebral atrophy. Major Intracranial Vessels: Better evaluated on recent CTA. Sinuses: Minimal mucosal thickening. Mastoids: Clear. The visualized bilateral orbits are unremarkable. MRI/Brain without Contrast IMPRESSION: 1. No acute finding. 2. Chronic findings as described. Reading Location: [id number]
--- NOTE | 2025-06-11 15:48 | PCM.DC.SUM ---
Providers Date of Admission: 06/10/25 Date of Discharge: 06/11/25 Primary Care Physician: Dr. Terry Yañez Sr., DO Consultations 06/10/25 15:44 Consult: Tele-Neurology Routine Consulting Provider: [facility] Reason for Consult: TIA r/o EMERGENT Consult: No MD Notified: Yes Date Notified: 06/10/25 Time Notified: 16:43 Method of Notification: Answering Service Nursing Unit Staff Notify [facility] of Tele-Neurology Consult: Yes Reason For Visit: TIA RULE OUT Diagnosis Discharge Diagnosis (1) Transient confusion: Status: Acute Code(s): R41.0 - Disorientation, unspecified Plan 79-year-old female was admitted for unresponsive episode with increased weakness/AMS at [facility]. Patient found to be normal on EMS arrival. Had a recent hip replacement increased to clinic by Dr. Resendiz # Transient confusion: Patient admitted to telemetry. PT, OT, speech therapy/swallow evaluation and management, nursing NIH stroke scale, BP and glucose monitoring and control as per stroke protocol. Head and neck CTA does not show any large vessel occlusion/aneurysm or AVM. CT brain no acute intracranial finding. MRI brain was negative for acute infarct/intracranial abnormality. Furthermore, neurology consult was done. Patient might be encephalopathy from medication. Denies dysuria or acute urinary tract symptoms. UA was positive of LE 100, WBC 5-10 cells 0-5, nitrite negative therefore not convincing for UTI. Urine culture pending. TSH 5.25, high normal. A1c 5.6%. Fasting profile within normal limit. # Hypertensive urgency: Blood pressure was 175/79-1 98/88. In the morning today 131/79. Monitor BP halfway. Titrate the antihypertensive medication accordingly. #Mild trop elevation, etiology undetermined: Patient does not have chest pain or shortness of breath. First troponin 22. No further troponin was ordered and I do not think it is needed with no clinical symptoms or findings to investigate. #Hypothyroidism -Continue Synthroid. TSH slightly elevated 5.25. Synthroid dose increased to 75 mcg daily and prescription ordered. # Recent right hip replacement - At [facility] this past Thursday #DVT ppx: SCDs Patient is discharged back to halfway. 06/11/25 04:46: WBC 5.6, RBC 4.33, Hgb 12.6, Hct 38.2, MCV 88.2, MCH 29.1, MCHC 33.0, RDW Std Deviation 52.2 H, RDW Coeff of Blessing 16.0 H, Plt Count 298, MPV 10.2, Immature Gran % (Auto) 0.900, Neut % (Auto) 67.4, Lymph % (Auto) 18.7 L, Drew % (Auto) 10.3 H, Eos % (Auto) 1.8, Baso % (Auto) 0.9, Absolute Neuts (auto) 3.8, Absolute Lymphs (auto) 1.05, Nucleated RBC % 0, PT 13.3, INR 1.0, Sodium 137, Potassium 3.8, Chloride 104, Carbon Dioxide 20.4 L, Anion Gap 12, BUN 13, Creatinine 0.85, Estim Creat Clear Calc 42.94 L, Est GFR (MDRD) Non-Af 69, BUN/Creatinine Ratio 14.7, Glucose 101 H, Hemoglobin A1c 5.6, Calcium 10.2, Triglycerides 101, Cholesterol 125, LDL Cholesterol, Calc 53, VLDL Cholesterol 20, HDL Cholesterol 52, Cholesterol/HDL Ratio 2.42, TSH 5.250 H Discharge medication reconciliation done. Discharge follow-up instructions completed. Discharge process discussed with the patient and all questions were answered to patient's satisfaction. Follow with PCP in 1 to 2 weeks Total time spent, exact 35 minutes on discharge meds reconciliation, examination, coordination of care with nurses and ancillary staff, review of imaging and blood test and discussion with the patient on follow-up instructions. Medications at Discharge Home Medications Lactobacillus acidophilus 10 billion cell capsule (Probiotic) 10,000 mmu cells PO DAILY 06/10/25 acetaminophen 500 mg tablet 1,000 mg PO Q6H PRN pain 06/10/25 amitriptyline 10 mg tablet 10 mg PO PRN loose stools 06/10/25 aspirin 81 mg tablet,delayed release 81 mg PO BID 06/10/25 atorvastatin 20 mg tablet (Lipitor) 20 mg PO DAILY 06/10/25 bisacodyl 10 mg rectal suppository 10 mg SC DAILY PRN constipation 06/10/25 calcium ER 600 mg (as carb,cit)-D3 12.5 mcg (500 unit) tablet, ext.rel (Citracal-D3 Slow Release) 2 tab PO DAILY supplement 06/10/25 cholecalciferol (vitamin D3) 50 mcg (2,000 unit) capsule 50 mcg PO DAILY 06/10/25 montelukast 10 mg tablet 10 mg PO QPM 06/10/25 tramadol 50 mg tablet 50 mg PO Q8H PRN pain 06/10/25 levothyroxine 75 mcg tablet (Levoxyl) 75 mcg PO DAILY 1 month #30 tabs 06/11/25 magnesium hydroxide 400 mg/5 mL oral suspension (Milk of Magnesia) 30 ml PO DAILY PRN constipation 06/11/25 sennosides 8.6 mg-docusate sodium 50 mg tablet 1 tab-cap PO DAILY PRN constipation 06/11/25 Physical Exam Narrative Seen and examined Patient is awake alert oriented x 3. In the morning she was little bit confused and told the month as July at age 23. Physical exam General: Alert, Oriented x3, Cooperative HEENT: Atraumatic, PERRLA, EOMI, Normocephalic. Oral: No Gingival or Mucosal Lesions/ Ulcerations Neck: Supple, No JVD, Negative Carotid Bruits Chest wall/Lungs: Air entry diminished in bilateral lung bases. No crepitation/rhonchi Cardiovascular: Regular rate and rhythm, Normal S1,S2, No M/G/R Abdomen: Bowel Sounds Present, Soft, Non Tender, Non-Distended : No dysuria. No renal angle tenderness. No suprapubic tenderness. Extremities: No edema, Capillary Refill Less than 3 Seconds Skin: No rashes, No breakdown Musculoskeletal: No Tenderness to Palpation of Joints or Extremities Neurological: Cranial nerves II-XII grossly intact, DTR 2+/4. NIH 2 for incorrect month and age Psych/Mental Status: Flat affect, anxiety Weight / BMI Weight Weight: 128 lb 1.417 oz Body Mass Index (BMI) 22.6 ABG / Lab / Microbiology Data 06/11/25 04:46 06/11/25 04:46 Laboratory: Laboratory Results - last 24 hr 06/11/25 04:46: WBC 5.6, RBC 4.33, Hgb 12.6, Hct 38.2, MCV 88.2, MCH 29.1, MCHC 33.0, RDW Std Deviation 52.2 H, RDW Coeff of Blessing 16.0 H, Plt Count 298, MPV 10.2, Immature Gran % (Auto) 0.900, Neut % (Auto) 67.4, Lymph % (Auto) 18.7 L, Drew % (Auto) 10.3 H, Eos % (Auto) 1.8, Baso % (Auto) 0.9, Absolute Neuts (auto) 3.8, Absolute Lymphs (auto) 1.05, Nucleated RBC % 0, PT 13.3, INR 1.0, Sodium 137, Potassium 3.8, Chloride 104, Carbon Dioxide 20.4 L, Anion Gap 12, BUN 13, Creatinine 0.85, Estim Creat Clear Calc 42.94 L, Est GFR (MDRD) Non-Af 69, BUN/Creatinine Ratio 14.7, Glucose 101 H, Hemoglobin A1c 5.6, Calcium 10.2, Triglycerides 101, Cholesterol 125, LDL Cholesterol, Calc 53, VLDL Cholesterol 20, HDL Cholesterol 52, Cholesterol/HDL Ratio 2.42, TSH 5.250 H Radiography Diagnostic Testing: Radiology Impression Brain MRI 06/11/25 15:44 IMPRESSION: 1. No acute finding. 2. Chronic findings as described. Reading Location: [id number] D/C Instructions DC O2, CPAP, BIPAP Needs Home O2 Discharge instructions: No Meaningful Use Info Meaningful Use Meaningful Use Diagnoses (Choose all that apply): None applicable Discharge Plan Admission Admit Date/Time: 06/10/25 14:34 Primary Reason for Your Visit: Encephalopathy. Attending Provider: Broderick Prakash Primary Care Provider: Otilio Dozier,Terry Consulting Providers: Hira Chavez; Anthony Ramos; Margot Crawford; Nory Ramos; Abigail Barksdale; David Quinn; Odessa Germain; Daniel Carroll; Homar Shirley; Salazar Vasquez; Kimberly Martin; Gary De Paz; Emily Rhoades; Dory Ordonez; Jesse Lawrence; Gordo Licea; Yumi Maddox; Leon Linda; Whit Antonio; Goran Potts; Blessing Brantley Discharge Orders/Prescriptions Prescriptions: New levothyroxine [Levoxyl] 75 mcg tablet 75 mcg PO DAILY 30 Days Qty: 30 2RF Continued amitriptyline 10 mg tablet 10 mg PO PRN aspirin 81 mg tablet,delayed release (DR/EC) 81 mg PO BID atorvastatin [Lipitor] 20 mg tablet 20 mg PO DAILY bisacodyl 10 mg suppository 10 mg SC DAILY PRN (Reason: constipation) calcium carb, citrate-vit D3 [Citracal-D3 Slow Release] 600 mg-12.5 mcg (500 unit) tablet extended release 2 tab PO DAILY tramadol 50 mg tablet 50 mg PO Q8H PRN (Reason: pain) montelukast 10 mg tablet 10 mg PO QPM cholecalciferol (vitamin D3) 50 mcg (2,000 unit) capsule 50 mcg PO DAILY acetaminophen 500 mg tablet 1,000 mg PO Q6H PRN (Reason: pain) Probiotic 10 billion cell capsule 10,000 mmu cells PO DAILY sennosides-docusate sodium 8.6-50 mg tablet 1 tab-cap PO DAILY PRN (Reason: constipation) magnesium hydroxide [Milk of Magnesia] 400 mg/5 mL suspension 30 ml PO DAILY PRN (Reason: constipation) Discontinued levothyroxine 50 mcg tablet 50 mcg PO DAILY Referrals / Follow Up: Otilio Dozier,DO Terry [Primary Care Provider] - Iglesia Gaitan MD [Non-Staff -Ordering Privileges] - Within 1 Month (Encephalopathy) Disposition Disposition (needs filled in before D/C Order can be placed): Custodial Facility Charges/Coding Visit Charges Inpatient E&M: 72189 Disch Hosp >30min
[2025-06-11 15:59] VITALS: BP 135/72; PULSE 90; RESP 16; TEMP 36.6; O2SAT 94
== END 2025-06-11 12:26 | disposition skilled nursing facility (03) ==
LOC: ED 14:43 → PCU 14:56
PROVIDERS: Admitting Provider Internal Medicine; Emergency Provider Emergency Medicine; PCP Internal Medicine; Visit Provider Internal Medicine
DX: R41.0 Disorientation, unspecified (principal); Z79.890 Hormone replacement therapy; E78.5 Hyperlipidemia, unspecified; E03.9 Hypothyroidism, unspecified; Z96.641 Presence of right artificial hip joint; Z98.890 Other specified postprocedural states; R79.89 Other specified abnormal findings of blood chemistry; I16.0 Hypertensive urgency
CPT/HCPCS: 36415; 70450; 70496; 70498; 70551; 80048; 80061; 81001; 83036; 84443; 84484; 85025; 85610; 85730; 87077; 87086; 87088; 87186; 92610; 93005; 94762; 97162; 97166; 97802; 99221; 99285; Q9967; A4216; G0378